=== PATIENT | female | born 1960 | race Hispanic/Latino ===

== ENCOUNTER 2020-08-16 18:28 | Emergency (ER) | payer BC ==
[~2020-08-16] VITALS: Ht 160 cm; Wt 67.1 kg
[2020-08-16] MEDS ORDERED: SODIUM CHLORIDE 0.9% 1000ML 1,000 ML IV STA (18:43)
[2020-08-16] MEDS ORDERED: DEXAMETHASONE SOD PHOS INJ 4 MG/ML VIAL IV ONE (18:45)
[2020-08-16] MEDS ORDERED: KETOROLAC TROMETHAMINE 30 MG/ML VIAL IV ONE (18:45)
[2020-08-16] MEDS ORDERED: ONDANSETRON HCL INJ 2MG/ML 2ML 2 MG/ML VIAL IV ONE (18:45)
[2020-08-16] MEDS ORDERED: KETOROLAC TROMETHAMINE 30 MG/ML VIAL ONE (19:14)
[2020-08-16] MEDS ORDERED: ONDANSETRON HCL INJ 2MG/ML 2ML 2 MG/ML VIAL ONE (19:14)
[2020-08-16] MEDS ORDERED: SODIUM CHLORIDE 0.9% 1000ML 1,000 ML ONE (19:14)
[2020-08-16] MEDS ORDERED: DEXAMETHASONE SOD PHOS INJ 4 MG/ML VIAL ONE (19:14)
[2020-08-16] MEDS ORDERED: IOPAMIDOL 370 MG/ML 200 ML INFUS..BTL INJ ONE (19:43)
[2020-08-16] MEDS ORDERED: SODIUM CHLORIDE 0.9% 50ML 50 ML ONE (19:43)
[2020-08-16 19:51] LABS: BASOPHILS % 0.4 % (0.0-1.0); EOSINOPHILS # (AUTO) 0.2 (0.0-0.4); EOSINOPHILS % 2.3 % (0.0-6.0); HEMATOCRIT 41.4 % (34.2-44.1); HEMOGLOBIN 13.2 g/dL (12.0-16.0); LYMPHOCYTES # (AUTO) 3.2 (1.0-3.2); LYMPHOCYTES % 39.1 % (18.0-39.1); MEAN CORPUSCULAR HEMOGLOBIN 26.3 pg (28-32); MEAN CORPUSCULAR HGB CONC 31.9 g/dL (31-35); MEAN CORPUSCULAR VOLUME 82.5 fL (81-99); MONOCYTES # (AUTO) 0.6 (0.2-0.8); MONOCYTES % 6.8 % (4.4-11.3); NEUTROPHILS # (AUTO) 4.2 (2.1-6.9); PLATELET COUNT 256 x10e3/uL (140-360); RED BLOOD COUNT 5.02 x10e6/uL (3.6-5.1); RED CELL DISTRIBUTION WIDTH 13.2 % (11.7-14.4)
[2020-08-16] MEDS ORDERED: ZOFRAN4 MG PO (21:23)
[2020-08-16] MEDS ORDERED: ULTRAM 50MG50 MG PO (21:23)
[2020-08-16] MEDS ORDERED: ACETAMINOPHEN500 MG PO (21:23)
== END 2020-08-16 21:40 | disposition home or self-care (01) ==
LOC: FSED 19:00
DX: M54.5 Low back pain (principal); R16.0 Hepatomegaly, not elsewhere classified; Z87.442 Personal history of urinary calculi
CPT/HCPCS: 36415; 71260; 80053; 81003; 85025; 99284; J1100; J1885; J2405; J7030; Q9967